=== PATIENT | female | born 2000 | race African-American/Black ===

== ENCOUNTER 2018-09-19 16:42 | Emergency (ER) | payer SELFPAY ==
[~2018-09-19] VITALS: Ht 162.6 cm; Wt 62.7 kg
[2018-09-19 17:16] VITALS: BP 142/83
== END 2018-09-19 18:33 | disposition left against medical advice (07) ==
LOC: EMS 16:44
DX: Z00.8 Encounter for other general examination (principal); Z53.21 Procedure and treatment not carried out due to patient leaving prior to being seen by health care provider